=== PATIENT | male | born 2000 | race Caucasian/White ===

== ENCOUNTER 2020-01-16 20:07 | Emergency (ER) | payer OTHER ==
[~2020-01-16] VITALS: Ht 170.2 cm; Wt 75.3 kg
[~2020-01-16 20:07] MED LIST: ADVIL LIQUI-GE200 MG PO; ALLEGRA ALLERG180 MG PO; SEPTRA DS TABLE1 TAB PO; SINGULAIR 10MG10 MG PO; TUSICOF LIQUID120 ML PO
[2020-01-16] MEDS ORDERED: STRATTERA80 MG (20:27)
== END 2020-01-16 23:40 | disposition home or self-care (01) ==
LOC: ER 20:07
DX: R53.81 Other malaise (principal); G44.40 Drug-induced headache, not elsewhere classified, not intractable; T43.211A Poisoning by selective serotonin and norepinephrine reuptake inhibitors, accidental (unintentional), initial encounter; Y92.89 Other specified places as the place of occurrence of the external cause

== ENCOUNTER 2020-12-26 15:20 | Emergency (ER) | payer OTHER ==
[~2020-12-26] VITALS: Ht 170.2 cm; Wt 74.4 kg
[~2020-12-26 15:20] MED LIST changes: +STRATTERA80 MG
[2020-12-26] MEDS ORDERED: STRATTERA100 MG PO (15:45)
[2020-12-26] MEDS ORDERED: AZELASTINE137 MCG/0. NASAL (15:46)
[2020-12-26] MEDS ORDERED: ALLERGY RELIEF180 MG PO (15:46)
[2020-12-26] MEDS ORDERED: FLONASE16 GM NS (15:46)
== END 2020-12-26 18:19 | disposition home or self-care (01) ==
LOC: ER 15:20
DX: D69.6 Thrombocytopenia, unspecified (principal)

== ENCOUNTER 2020-12-27 18:09 | Emergency (ER) | payer OTHER ==
[~2020-12-27] VITALS: Ht 170.2 cm; Wt 75.3 kg
[~2020-12-27 18:09] MED LIST changes: +ALLERGY RELIEF180 MG PO; +AZELASTINE137 MCG/0. NASAL; +FLONASE16 GM NS; +STRATTERA100 MG PO
== END 2020-12-27 21:09 | disposition home or self-care (01) ==
LOC: ER 18:09
DX: A90 Dengue fever [classical dengue] (principal); D69.6 Thrombocytopenia, unspecified; B34.9 Viral infection, unspecified